=== PATIENT | male | born 1960 | race Caucasian/White ===

== ENCOUNTER 2023-10-07 18:46 | Emergency (ER) | payer OTHER, SELFPAY ==
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
[2023-10-07 19:06] VITALS: BP 142/80; PULSE 65; RESP 16; TEMP 37.1; O2SAT 95; BMI 26.6
[2023-10-07 19:19] VITALS: BP 142/80; PULSE 65; RESP 16; TEMP 37.1; O2SAT 95
== END 2023-10-07 19:20 | disposition home or self-care (01) ==
LOC: HO.ED 19:17
PROVIDERS: Emergency Provider Emergency Medicine Emergency Medical Services; PCP Internal Medicine
DX: S16.1XXA Strain of muscle, fascia and tendon at neck level, initial encounter (principal); V43.62XA Car passenger injured in collision with other type car in traffic accident, initial encounter; Y93.89 Activity, other specified; Y92.414 Local residential or business street as the place of occurrence of the external cause; Y99.9 Unspecified external cause status
CPT/HCPCS: 99282; 99283